=== PATIENT | female | born 2000 | race Caucasian/White ===

== ENCOUNTER 2019-06-19 20:03 | Emergency (ER) | payer BC ==
[~2019-06-19] VITALS: Ht 165.1 cm; Wt 90.0 kg
[~2019-06-19 20:03] MED LIST: DOXYCYCL HYC100 MG PO; FLONASE NASAL50 MCG; NAPROSYN500 MG PO; NO MEDS; ROBITUSSIN200 MG/10 PO; SULFACET SOD10 % OD; ULTRAM50 M1 PO; ZITHROMAX250 MG OR; ZITHROMAX250 MG PO; ZPAK PO
[2019-06-19] MEDS ORDERED: CLARITHROMYC500 MG PO (20:21)
[2019-06-19 20:55] VITALS: BP 123/88
== END 2019-06-19 20:55 | disposition home or self-care (01) | DRG 153 ==
LOC: ED 20:03
DX: J03.91 Acute recurrent tonsillitis, unspecified (principal)

== ENCOUNTER 2022-07-24 07:39 | Emergency (ER) | payer BC ==
[~2022-07-24] VITALS: Ht 165.1 cm; Wt 104.0 kg
[~2022-07-24 07:39] MED LIST changes: +CLARITHROMYC500 MG PO
[2022-07-24 08:02] VITALS: BP 114/76
[2022-07-24 08:16] VITALS: BP 136/67
[2022-07-24 08:30] VITALS: BP 107/70
[2022-07-24] MEDS ORDERED: DECADRON4 MG PO (08:30)
[2022-07-24] MEDS ORDERED: CELEBREX100 M1 PO (08:30)
[2022-07-24] MEDS ORDERED: FLEXERIL5 M1 PO (08:31)
[2022-07-24 08:45] VITALS: BP 92/69
== END 2022-07-24 09:10 | disposition home or self-care (01) | DRG 556 ==
LOC: ED 07:39
PROC: 3E0233Z Introduction of Anti-inflammatory into Muscle, Percutaneous Approach (ICD-10-PCS; principal; 2022-07-24)
PROC: 3E023BZ Introduction of Anesthetic Agent into Muscle, Percutaneous Approach (ICD-10-PCS; 2022-07-24)
DX: M79.18 Myalgia, other site (principal)

== ENCOUNTER 2024-02-17 23:27 | Emergency (ER) | payer OTHER ==
[~2024-02-17] VITALS: Ht 167.6 cm; Wt 112.0 kg
[~2024-02-17 23:27] MED LIST changes: +CELEBREX100 M1 PO; +CIPROFLOXACN500 MG PO; +DECADRON4 MG PO; +FLEXERIL5 M1 PO; +ONDANSETRON4 MG PO; +PERCOCET 5/325M1 TAB PO
[2024-02-17 23:41] VITALS: BP 113/72
[2024-02-17] MEDS ORDERED: METOCLOPRAMIDE HCL 10 MG/2 ML SDV IV ONE (23:50)
[2024-02-17] MEDS ORDERED: DICYCLOMINE HCL 20 MG/2 ML VIAL IM ONE (23:50)
[2024-02-17] MEDS ORDERED: KETOROLAC TROMETHAMINE 30 MG/ML SDV IV ONE (23:50)
[2024-02-17] MEDS ORDERED: FAMOTIDINE 10MG/ML 2ML SDV IV ONE (23:50)
[2024-02-17] MEDS ORDERED: SODIUM CHLORIDE 0.9% 1,000 ML IV ONE (23:55)
[2024-02-18] MEDS ORDERED: ZEPBOUND (00:39)
[2024-02-18 00:46] LABS: BASO% 0.3 % (0-3); EOS% 0.9 % (0-8); HEMATOCRIT 41.6 % (37.0-47.0); HEMOGLOBIN 13.2 g/dl (12.0-16.0); IMMATURE GRANULOCYTES 0.2 % (0.0-5.0); LYMPH% 19.9 % (15-41); MEAN CORPUSCULAR HGB 26.7 pG CALC (26.0-32.0); MEAN CORPUSCULAR HGB CONC 31.7 g/dL CAL (32.0-36.0); MONO% 4.4 % (2-13); NEUT# 8.59 thou/uL (2.00-7.15); NEUT% 74.3 % (42-76); RED BLOOD COUNT 4.95 mill/uL (4.20-5.60); RED CELL DISTRI WIDTH 13.4 % (11.5-15.5)
[2024-02-18 00:51] LABS: ALBUMIN 4.6 g/dL (3.2-5.0); BILIRUBIN, TOTAL 0.8 mg/dL (0.02-1.3); CREATININE 0.7 mg/dL (0.5-1.0); POTASSIUM 4.2 mmol/l (3.5-5.1); TOTAL PROTEIN 8.6 g/dL (6.3-8.2)
[2024-02-18] MEDS ORDERED: SODIUM CHLORIDE 0.9% 1,000 ML IV ONE (02:25)
[2024-02-18] MEDS ORDERED: methylPREDNISolone SODIUM SUCC 125 MG/2 ML SDV IV ONE (02:25)
[2024-02-18] MEDS ORDERED: DiphenhydrAMINE HCL 50 MG/ML SDV IV ONE (02:25)
[2024-02-18] MEDS ORDERED: FAMOTIDINE 10MG/ML 2ML SDV IV ONE (02:25)
[2024-02-18] MEDS ORDERED: MORPHINE SULFATE 4 MG/ML VIAL IV ONE (02:25)
[2024-02-18] MEDS ORDERED: ONDANSETRON HCl 4 MG/2 ML SDV IV ONE (02:25)
[2024-02-18 02:40] VITALS: BP 113/77
[2024-02-18 02:58] LABS: URINE BILIRUBIN - DIPSTICK Negative (NEGATIVE); URINE BLOOD DIPSTICK Negative (NEGATIVE); URINE GLUCOSE - DIPSTICK Negative (NEGATIVE); URINE KETONE Negative (NEGATIVE); URINE LEUK ESTERASE Negative (NEGATIVE); URINE NITRITE - DIPSTICK Negative (Negative); URINE PROTEIN - DIPSTICK Negative (NEG-TRACE); URINE UROBILINOGEN - DIPSTICK 0.2 E.U./dL (0.2)
[2024-02-18 02:59] LABS: URINE COLOR Yellow
[2024-02-18 03:01] VITALS: BP 105/60
[2024-02-18 03:30] VITALS: BP 114/70
[2024-02-18 04:01] VITALS: BP 105/66
[2024-02-18] MEDS ORDERED: DICYCLOMINE HCL20 MG PO (04:19)
[2024-02-18] MEDS ORDERED: ONDANSETRON4 MG PO (04:19)
[2024-02-18] MEDS ORDERED: PEPCID20 MG PO (04:19)
[2024-02-18] MEDS ORDERED: DiphenhydrAMINE HCL 50 MG/ML SDV IM ONE (05:25)
[2024-02-18] MEDS ORDERED: FAMOTIDINE 20 MG/TAB PO ONE (05:25)
[2024-02-18 07:54] VITALS: BP 105/66
== END 2024-02-18 07:59 | disposition home or self-care (01) | DRG 392 ==
LOC: ED 23:27
PROVIDERS: Internal Medicine
DX: R11.2 Nausea with vomiting, unspecified (principal); R10.9 Unspecified abdominal pain; L50.0 Allergic urticaria; T50.8X5A Adverse effect of diagnostic agents, initial encounter; E66.9 Obesity, unspecified
CPT/HCPCS: Q9967